=== PATIENT | female | born 1935 | race Caucasian/White ===

== ENCOUNTER → 2016-06-05 | Outpatient (REF) ==
[~2016-06-05] MED LIST: ALEVE 220MG220 MG PO; B COMPLEX1 TA4 PO; CALCIUM 600MG+D1 TAB PO; CALCIUM500 MG PO; EPA FISH OIL1000 MG PO; FOLIC ACID1 MG PO; IRON FERROUS S325 MG PO; MULTIPLE VITAMI1 CAP PO; NEURONTIN300 MG/CAP PO; SYNTHROID0.1 MG PO; SYNTHROID0.1 MG/TAB PO; ULTRACET TABL1 UDTAB PO; VITAMIN C BUFF500 MG PO; ZANTAC 150MG T150 MG PO
== END ==
LOC: ZLAB.WCH 10:07
DX: Z01.89 Encounter for other specified special examinations (principal)

== ENCOUNTER → 2016-06-29 | Outpatient (REF) | LOC: ZLAB.WCH 12:29 | DX: Z01.89 Encounter for other specified special examinations (principal) ==

== ENCOUNTER → 2016-09-14 | Outpatient (CLI) | payer MEDICARE, OTHER | LOC: MHCPAIN 10:53 | DX: G89.29 Other chronic pain (principal); M47.817 Spondylosis without myelopathy or radiculopathy, lumbosacral region; M53.3 Sacrococcygeal disorders, not elsewhere classified; M96.1 Postlaminectomy syndrome, not elsewhere classified | CPT/HCPCS: G0463 ==

== ENCOUNTER → 2016-09-20 | Outpatient (CLI) | payer MEDICARE, OTHER | LOC: MHCPAIN 08:54 | DX: M53.3 Sacrococcygeal disorders, not elsewhere classified (principal) | CPT/HCPCS: A9585; G0260; J1040; Q9967 ==

== ENCOUNTER → 2016-10-15 | Outpatient (REF) | LOC: ZLAB.WCH 18:24 | DX: Z01.89 Encounter for other specified special examinations (principal) ==

== ENCOUNTER → 2016-10-22 | Outpatient (CLI) | payer MEDICARE, OTHER | LOC: MHCPAIN 09:30 | DX: G89.29 Other chronic pain (principal); M47.817 Spondylosis without myelopathy or radiculopathy, lumbosacral region; M53.3 Sacrococcygeal disorders, not elsewhere classified; M96.1 Postlaminectomy syndrome, not elsewhere classified | CPT/HCPCS: G0463 ==

== ENCOUNTER → 2016-11-02 | Outpatient (REF) | LOC: ZLAB.WCH 10:26 | DX: Z01.89 Encounter for other specified special examinations (principal) ==

== ENCOUNTER → 2017-04-16 | Outpatient (REF) | LOC: ZLAB.WCH 18:15 | DX: Z01.89 Encounter for other specified special examinations (principal) ==

== ENCOUNTER → 2017-09-05 | Outpatient (REF) | LOC: ZLAB.WCH 16:10 | DX: Z01.89 Encounter for other specified special examinations (principal) ==

== ENCOUNTER → 2018-02-06 | Outpatient (REF) | LOC: ZLAB.WCH 15:56 | DX: Z01.89 Encounter for other specified special examinations (principal) ==

== ENCOUNTER → 2018-04-17 | Outpatient (REF) | LOC: ZLAB.WCH 08:28 | DX: Z01.89 Encounter for other specified special examinations (principal) ==

== ENCOUNTER → 2018-08-07 | Outpatient (REF) | LOC: ZLAB.WCH 16:04 | DX: Z01.89 Encounter for other specified special examinations (principal) ==

== ENCOUNTER 2022-01-12 08:43 | Day surgery (SDC) | payer MEDICARE, OTHER ==
[~2022-01-12] VITALS: Ht 167.6 cm; Wt 67.0 kg
[~2022-01-12 08:43] MED LIST changes: +ROXICODONE 55 MG/TAB PO
[2022-01-12] MEDS ORDERED: EFFEXOR XR37.5 MG/CA PO (09:56)
[2022-01-12] MEDS ORDERED: CYMBALTA 60MG60 MG PO (09:56)
[2022-01-12] MEDS ORDERED: NEURONTIN600 MG/TAB PO (09:57)
[2022-01-12] MEDS ORDERED: ZANAFLEX2 MG PO (09:57)
[2022-01-12] MEDS ORDERED: ARICEPT10 MG PO (09:58)
[2022-01-12] MEDS ORDERED: ULTRAM 50MG TAB50 MG PO (09:58)
[2022-01-12] MEDS ORDERED: TYLENOL 500MG500 MG PO (09:59)
[2022-01-12] MEDS ORDERED: VOLTAREN GEL 1%1 TU TP (09:59)
[2022-01-12] MEDS ORDERED: D3-5050000 IU PO (10:00)
[2022-01-12] MEDS ORDERED: B COMPLEX #11 TA1 PO (10:00)
[2022-01-12] MEDS ORDERED: NAMENDA 10MG TA10 MG PO (10:00)
[2022-01-12] MEDS ORDERED: BENADRYL25 M2 PO (10:01)
[2022-01-12] MEDS ORDERED: LOTRIMIN45CR TOP (10:01)
[2022-01-12] MEDS ORDERED: ENDARI5 G1 PO (10:02)
[2022-01-12] MEDS ORDERED: BLINK TEARS15 ML OP (10:02)
[2022-01-12 10:03] VITALS: BP 153/86; PULSE 103; TEMP 98.3
--- NOTE | 2022-01-12 10:15 | NUR ---
Attempted to scan patient ID band many times and keep getting notification to scan patient. V number and patient ID is confirmed with myself and another nurse. Attempted to scan a reprinted wristband as well. Contacted pharmacy for assistance, which they were unable to assist.
[2022-01-12 12:15] VITALS: BP 122/61; PULSE 81
--- NOTE | 2022-01-12 12:15 | NUR ---
Patient arrives to [facility] [place] [address] via cart, accompanied by EXCH[employer] ARCHITECT Laureen Gutierrez and ELVIS Morrison. She is alert and oriented. VSS on room air. She complains of pain 6/10 in her left upper arm, where she has had a previous surgery and has a tender area. Orders for fentanyl are received to treat the pain from Cesario Morrison. Will wait for pharmacy to approve and then administer to the patient.
[2022-01-12 12:30] VITALS: BP 134/80; PULSE 73
[2022-01-12 12:45] VITALS: BP 133/87; PULSE 76; TEMP 97
--- NOTE | 2022-01-12 12:45 | NUR ---
Patient states her pain is a 6/10, however she says it is improving. She is offered an oral pain tablet to help with pain control and is agreeable to this.
[2022-01-12 13:00] VITALS: BP 132/79; PULSE 80
--- NOTE | 2022-01-12 13:41 | NUR ---
Patient has met discharge criteria. She has eaten, drank, voided, and ambulated with steady gait. PIV is removed with catheter intact and hemostasis achieved. Staff assists her to change to her clothing. She is escorted to the exit via wheelchair by staff. Her port remained accessed as she is going straight to the cancer center for chemotherapy. Her daughter drives her from the hospital at 1341.
== END 2022-01-12 13:41 | disposition home or self-care (01) ==
LOC: SDCO 08:43
DX: Z45.2 Encounter for adjustment and management of vascular access device (principal); C79.51 Secondary malignant neoplasm of bone; K21.9 Gastro-esophageal reflux disease without esophagitis; Z85.3 Personal history of malignant neoplasm of breast; Z79.899 Other long term (current) drug therapy
CPT/HCPCS: C1788; J0690; J1644; J2704; J3010; J7120

== ENCOUNTER → 2023-08-13 | Outpatient (CLI) | payer MEDICARE, OTHER ==
[~2023-08-13] VITALS: Ht 162.6 cm; Wt 65.7 kg
[~2023-08-13] MED LIST changes: +ARICEPT10 MG PO; +B COMPLEX #11 TA1 PO; +BENADRYL25 M2 PO; +BLINK TEARS15 ML OP; +CYMBALTA 60MG60 MG PO; +D3-5050000 IU PO; +EFFEXOR XR37.5 MG/CA PO; +ENDARI5 G1 PO; +LOTRIMIN45CR TOP; +NAMENDA 10MG TA10 MG PO; +NEURONTIN600 MG/TAB PO; +TYLENOL 500MG500 MG PO; +ULTRAM 50MG TAB50 MG PO; +VOLTAREN GEL 1%1 TU TP; +ZANAFLEX2 MG PO
== END ==
LOC: DIET.CLI 13:27
DX: C41.9 Malignant neoplasm of bone and articular cartilage, unspecified (principal); Z85.3 Personal history of malignant neoplasm of breast; Z51.11 Encounter for antineoplastic chemotherapy; R62.7 Adult failure to thrive